=== PATIENT | male | born 1995 | race Caucasian/White ===

== ENCOUNTER 2022-02-02 12:12 | Emergency (ER) | payer MEDICAID ==
[~2022-02-02] VITALS: Ht 180.3 cm; Wt 77.3 kg
[2022-02-02 14:52] LABS: COVID AG,FIA SOURCE NASAL SWAB
[2022-02-02] MEDS ORDERED: AMOX500C2 PO (17:00)
[2022-02-02 17:19] VITALS: BP 114/65
== END 2022-02-02 17:20 | disposition home or self-care (01) ==
LOC: EMS 12:12
DX: H66.92 Otitis media, unspecified, left ear (principal); Z20.822 Contact with and (suspected) exposure to COVID-19
CPT/HCPCS: 99283

== ENCOUNTER 2023-12-29 07:17 | Emergency (ER) | payer MEDICAID ==
[~2023-12-29] VITALS: Ht 180.3 cm; Wt 81.8 kg
[~2023-12-29 07:17] MED LIST: AMOX500C2 PO
[2023-12-29 07:21] VITALS: BP 152/84; PULSE 84; RESP 18; TEMP 98.7
[2023-12-29] MEDS ORDERED: CEPH-558 PO (09:37)
[2023-12-29] MEDS ORDERED: IBUP-1492 PO (09:37)
== END 2023-12-29 09:48 | disposition home or self-care (01) ==
LOC: EMS 07:18
DX: H66.93 Otitis media, unspecified, bilateral (principal); R50.9 Fever, unspecified; F17.210 Nicotine dependence, cigarettes, uncomplicated
CPT/HCPCS: 99283; Z7502

== ENCOUNTER 2023-12-31 13:02 | Emergency (ER) | payer MEDICAID ==
[~2023-12-31] VITALS: Ht 180.3 cm; Wt 81.8 kg
[~2023-12-31 13:02] MED LIST changes: -AMOX500C2 PO; +CEPH-558 PO; +IBUP-1492 PO
[2023-12-31 13:17] VITALS: BP 112/56; PULSE 76; RESP 16; TEMP 97.9
== END 2023-12-31 14:54 | disposition left against medical advice (07) ==
LOC: EMS 13:02
DX: H92.03 Otalgia, bilateral (principal); Z53.21 Procedure and treatment not carried out due to patient leaving prior to being seen by health care provider
CPT/HCPCS: 99281

== ENCOUNTER 2024-05-13 13:44 | Emergency (ER) | payer SELFPAY ==
[~2024-05-13] VITALS: Ht 180.3 cm; Wt 84.1 kg
[2024-05-13 13:45] VITALS: BP 117/55; PULSE 67; RESP 18; TEMP 98.5; O2SAT 99
[2024-05-13] MEDS ORDERED: IMIQ1CRE TP (18:32)
== END 2024-05-13 14:14 | disposition home or self-care (01) ==
LOC: EMS 13:44
DX: H00.14 Chalazion left upper eyelid (principal); F12.90 Cannabis use, unspecified, uncomplicated; F17.210 Nicotine dependence, cigarettes, uncomplicated; Z90.49 Acquired absence of other specified parts of digestive tract
CPT/HCPCS: 99282; 99283

== ENCOUNTER 2024-05-13 16:27 | Emergency (ER) | payer MEDICAID ==
[~2024-05-13] VITALS: Ht 188 cm; Wt 84.1 kg
[2024-05-13 16:38] VITALS: BP 124/85; PULSE 84; RESP 16; TEMP 98.5; O2SAT 99
[2024-05-13] MEDS ORDERED: IMIQ1CRE TP (18:32)
== END 2024-05-13 18:49 | disposition home or self-care (01) ==
LOC: EMS 16:27
DX: L29.9 Pruritus, unspecified (principal); F12.90 Cannabis use, unspecified, uncomplicated; F17.210 Nicotine dependence, cigarettes, uncomplicated; Z90.49 Acquired absence of other specified parts of digestive tract
CPT/HCPCS: 99281; 99406; Z7502